=== PATIENT | male | born 1995 | race Asian ===

== ENCOUNTER 2023-01-28 23:13 | Emergency (ER) | payer SELFPAY ==
[~2023-01-28] VITALS: Ht 160 cm; Wt 52.2 kg
[2023-01-28 23:30] VITALS: BP 107/62; PULSE 86; RESP 14; TEMP 97.4; O2SAT 98
== END 2023-01-29 00:12 ==
LOC: EDSEX 23:13 → MED 23:13
DX: F10.90 Alcohol use, unspecified, uncomplicated; Y90.9 Presence of alcohol in blood, level not specified; V49.88XA Car occupant (driver) (passenger) injured in other specified transport accidents, initial encounter; Y93.89 Activity, other specified; Y92.89 Other specified places as the place of occurrence of the external cause; Y99.8 Other external cause status
CPT/HCPCS: 71045; 99283